=== PATIENT | male | born 1995 | race Caucasian/White ===

== ENCOUNTER 2022-07-06 08:21 | Emergency (ER) | payer OTHER | END 2022-07-06 12:26 | disposition home or self-care (01) | LOC: JD.ED 08:21 | DX: S67.01XA Crushing injury of right thumb, initial encounter (principal); W23.0XXA Caught, crushed, jammed, or pinched between moving objects, initial encounter; Y92.89 Other specified places as the place of occurrence of the external cause; Y99.0 Civilian activity done for income or pay | CPT/HCPCS: 73130-26-RT; 73130-RT; 99283 ==